=== PATIENT | female | born 1960 | race African-American/Black ===

== ENCOUNTER 2017-03-10 08:30 | Day surgery (SDC) | payer MEDICARE, MEDICAID ==
[~2017-03-10] VITALS: Ht 182.9 cm; Wt 146.4 kg
[~2017-03-10 08:30] MED LIST: BENTYL10 MG PO; CARAFATE1 G; CARAFATE1 G PO; CLEOCIN HCL300 MG PO; CYMBALTA30 MG PO; HYDROCODONE-APA1 TAB PO; LASIX40 MG PO; LIORESAL 10 MG10 MG PO; NEXIUM40 MG PO; OXYCONTIN15 MG PO; VENTOLIN HFA18 GM INH
[2017-03-10 10:38] LABS: HEMATOCRIT 41.9 % (36.0-48.0); HEMOGLOBIN 13.2 g/dL (12-16); MCH 29.5 pg (26.0-34.0); MCHC 31.5 g/dL (31.0-37.0); MCV 93.5 fL (80.0-100.0); MEAN PLATELET VOLUME 9.9 fL (7.4-10.4); RBC 4.48 10x6/uL (4.00-5.40); RDW 14.5 % (11.5-14.5); WBC 4.5 10x3/uL (4.8-10.8)
[2017-03-10] MEDS ORDERED: CYCLOBENZAPRINE10 MG PO (10:57)
[2017-03-10 11:05] VITALS: BP 125/66; Ht 182.9 cm; Wt 146.4 kg
--- NOTE | 2017-03-10 13:39 | NUR ---
DILATE ESOPHAGUS WITH 18-20 HEBREW BALLOON.
--- NOTE | 2017-03-10 15:15 | NUR ---
PATIENT'S SISTER HAS ARRIVED TO PROVIDE PATIENT TRANSPORTATION HOME. DISCHARGE INSTRUCTIONS REVIEWED WITH PATIENT, DISCHARGED HOME VIA WHEELCHAIR TO PRIVATE VEHICLE WITH SISTER
--- NOTE | 2017-03-13 12:18 | OP ---
PATIENT NAME: ISAAC LITTLE MEDICAL RECORD: [id number] :60 LOCATION:[place] ADMISSION DATE: SURGEON: DARIO WALKER DO DATE OF OPERATION: 03/10/2017 PROCEDURE: EGD with biopsies and balloon dilation less than 30 mm. INDICATIONS FOR PROCEDURE: Achalasia and dysphagia. SCOPE: Olympus video gastroscope. MEDICATIONS: The patient was intubated for general anesthesia due to history of achalasia. She was given Versed 2 mg IV and succinylcholine 140 mg IV for induction. This was followed by propofol 420 mg IV, all per anesthesia. ESTIMATED BLOOD LOSS: Minimal. FINDINGS: Informed consent was given. The Olympus video gastroscope was advanced under direct visualization through the mouth to the second portion of the duodenum. The upper, middle, and distal esophagus appeared normal, other than may be some slight dilation due to a possible diagnosis of achalasia. The GE junction revealed some LA class C reflux-induced esophagitis. It was not long in length, but was involving approximately 75% of the circumference of the GE junction. The lower esophageal sphincter did not appear over only hypertensive as the scope did pass into the stomach rather easily. The scope was retroflexed upon entrance into the stomach to view the cardia. There was evidence of a past Pauly fundoplication, but it did not appear too tight. The endoscope was placed into a forward position to view the body and antrum of the stomach. The fundus and body appeared normal. In the antrum, there was some streaky erythema and granularity consistent with possible gastritis. Random biopsies were taken to submit for histology and to rule out H. pylori. The endoscope was advanced into the duodenum where the bulb and second portion of the duodenum appeared normal. The scope was then withdrawn back into the stomach and a 16-18 mm CRE dilating balloon was placed through the scope. The balloon was dilated up to 18 mm maximal at the GE junction. Post-endoscopic appearances were satisfactory. On withdrawal of the scope, there was a questionable appearance of Candidal esophagitis present. Scope was then withdrawn from the patient in its entirety. The patient tolerated the procedure well and there were no complications. IMPRESSION: 1. Candidal esophagitis. 2. Reflux esophagitis grade C. 3. 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 This was dilated to 18 mm with a CRE balloon. 4. Possible gastritis with findings of granularity and erythema. Biopsies taken. 5. Status post Pauly fundoplication. PLAN AND RECOMMENDATIONS: 1. Discharge home when recovery parameters are met. 2. Continue current medications. 3. Add fluconazole 100 mg p.o. daily times 21 days. 4. Follow up in the GI clinic as needed. 5. Notify the clinic if symptoms do not improve. 6. Follow up with general surgery as previously scheduled. OPERATIVE REPORT [id number] ISAAC LITTLE TRANSINT:[id number] Voice Confirmation ID: [id number] DOCUMENT ID: [id number] DARIO WALKER DO at 1218 CC: [id number] DICTATION DATE: 03/10/17 1355 RETAINING ROOM CUTTER: 03/11/17 0003 [facility] 03/10/17 [id number] [place] [address]
== END 2017-03-10 15:15 | disposition home or self-care (01) ==
LOC: D.OPS 08:30
PROVIDERS: Anesthesiology
DX: R13.10 Dysphagia, unspecified (principal); K22.0 Achalasia of cardia; B37.81 Candidal esophagitis; K21.0 Gastro-esophageal reflux disease with esophagitis; J45.909 Unspecified asthma, uncomplicated; G47.30 Sleep apnea, unspecified; E66.01 Morbid (severe) obesity due to excess calories; Z68.41 Body mass index [BMI] 40.0-44.9, adult; Z01.812 Encounter for preprocedural laboratory examination

== ENCOUNTER 2018-04-20 09:50 | Day surgery (SDC) | payer MEDICARE, MEDICAID ==
[~2018-04-20] VITALS: Ht 182.9 cm; Wt 152.3 kg
--- NOTE | ~2018-04-20 | OP ---
PATIENT NAME: ISAAC LITTLE MEDICAL RECORD: [id number] :60 [facility] DATE: SURGEON: DARIO WALKER DO DATE OF OPERATION: 04/20/2018 PROCEDURE: EGD with biopsies and balloon dilation. INDICATIONS FOR PROCEDURE: Dysphagia with a known history of achalasia. SCOPE: Olympus video gastroscope. MEDICATIONS: Propofol 400 mg IV per anesthesia. ESTIMATED BLOOD LOSS: Minimal. COMPLICATIONS: None. FINDINGS: Informed consent was given. The patient was made comfortable with the above medication. After reaching an adequate level of sedation by slow IV push, the patient was placed on her left side. The endoscope was advanced under direct visualization through the mouth to the second portion of the duodenum. Throughout the entire esophagus, there was severe candidal esophagitis. The proximal, mid, and distal thirds of the esophagus were also dilated. At the distal esophagus and GE junction, there was some stenosis which would be consistent with her history of achalasia. At the GE junction, there was also some mild reflux esophagitis. Cold forceps biopsies were taken of the GE junction and an 18-20 mm CRE balloon was placed through the working channel of the endoscope. The site was dilated from 18 mm up to 20 mm total maximum diameter. Dilation was successful. The endoscope was advanced beyond the GE junction into the stomach and retroflexed to view the cardia, where a prior intervention was visualized. The patient does report a history of a Pauly fundoplication. The mucosa of the stomach appeared normal. Random biopsies were not taken as these were performed approximately a year ago and were normal. The endoscope was advanced beyond the pylorus into the duodenum where the bulb, first portion, and second portion of the duodenum all appeared normal. The endoscope was withdrawn from the patient. The patient tolerated the procedure well and there were no complications. IMPRESSION: 1. Candidal esophagitis. 2. Mild reflux esophagitis. 3. Dilated esophagus and a stenosed GE junction consistent with her history of achalasia status post biopsies and dilation to 20 mm. 4. Prior intervention in the form of a Pauly fundoplication involving the cardia of the stomach. PLAN AND RECOMMENDATIONS: 1. Discharge home when recovery parameters are met. 2. Follow up biopsy specimen results. 3. Continue current diet. 4. Continue current medications. 5. Add fluconazole 100 mg times 21 days and take 2 on day 1. 6. Repeat EGD as needed for dysphagia. TRANSINT:[id number] Voice Confirmation ID: [id number] DOCUMENT ID: [id number] OPERATIVE REPORT [id number] ISAAC LITTLE NATHAN A DO at 1531 CC: [id number] DICTATION DATE: 04/20/18 1255 FENCE INSTALLER FOREMAN: 04/20/[address] [facility] 04/20/[address] [address]
[~2018-04-20 09:50] MED LIST changes: +CYCLOBENZAPRINE10 MG PO
[2018-04-20 10:15] LABS: HEMATOCRIT 38.7 % (36.0-48.0); HEMOGLOBIN 12.8 g/dL (12-16); MCH 30.3 pg (26.0-34.0); MCHC 33.1 g/dL (31.0-37.0); MCV 91.7 fL (80.0-100.0); MEAN PLATELET VOLUME 9.8 fL (7.4-10.4); RBC 4.22 10x6/uL (4.00-5.40)
[2018-04-20 10:52] VITALS: Ht 182.9 cm; Wt 152.3 kg
== END 2018-04-20 14:01 | disposition home or self-care (01) ==
LOC: D.OPS 09:50
PROVIDERS: Anesthesiology
DX: R13.10 Dysphagia, unspecified (principal); B37.81 Candidal esophagitis; K22.2 Esophageal obstruction; K21.0 Gastro-esophageal reflux disease with esophagitis; K22.8 Other specified diseases of esophagus; J45.909 Unspecified asthma, uncomplicated; E66.01 Morbid (severe) obesity due to excess calories; Z01.812 Encounter for preprocedural laboratory examination

== ENCOUNTER → 2019-07-07 10:24 | Outpatient (CLI) | payer MEDICARE, MEDICAID ==
[2018-04-20 10:52] VITALS: BMI 45.5
== END | disposition home or self-care (01) ==
LOC: D.RAD 10:24 → D.RT 11:00
PROVIDERS: ATTEND Internal Medicine Pulmonary Disease
DX: J45.901 Unspecified asthma with (acute) exacerbation (principal)

== ENCOUNTER 2019-08-18 10:59 | Day surgery (SDC) | payer MEDICARE, MEDICAID ==
[~2019-08-18] VITALS: Ht 182.9 cm; Wt 153.6 kg
[2019-08-18 11:51] LABS: HEMATOCRIT 41.1 % (36.0-48.0); HEMOGLOBIN 13.7 g/dL (12-16); MCHC 33.3 g/dL (31.0-37.0); MEAN PLATELET VOLUME 9.6 fL (7.4-10.4); RBC 4.42 10x6/uL (4.00-5.40); RDW 12.9 % (11.5-14.5); WBC 6.2 10x3/uL (4.8-10.8)
[2019-08-18 12:04] LABS: CALC OSMOLALITY 275 mosm/kg (275-300); CALCIUM 8.7 mg/dL (8.5-10.1); CARBON DIOXIDE 25.7 mmol/L (21.0-32.0); CHLORIDE - SERUM 105 mmol/L (98-107); CREATININE - SERUM 0.8 mg/dL (0.6-1.3); GLUCOSE 83 mg/dL (74-106); POTASSIUM - SERUM 4.1 mmol/L (3.5-5.1); SODIUM 140 mmol/L (136-145); UREA NITROGEN 7 mg/dL (7-18); eGFR NON AFRICAN AMERICAN 78 mL/min (90-120)
[2019-08-18 12:57] VITALS: BP 117/54; Ht 182.9 cm; Wt 153.6 kg
[2019-08-18] MEDS ORDERED: VOLTAREN100 GM TOPICAL (13:13)
--- NOTE | 2019-08-23 11:16 | OP ---
PATIENT NAME: ISAAC LITTLE MEDICAL RECORD: [id number] :60 [facility] ADMISSION DATE: SURGEON: DARIO WALKER DO DATE OF OPERATION: 08/18/2019 PROCEDURE: EGD with balloon dilation and biopsies. INDICATIONS FOR PROCEDURE: Dysphagia, GERD, nausea with vomiting, and achalasia. SCOPE: Olympus video gastroscope. MEDICATIONS: Propofol 200 mg IV per anesthesia. ESTIMATED BLOOD LOSS: Minimal. COMPLICATIONS: None. FINDINGS: Informed consent was given. The patient was made comfortable with the above medication. After reaching an adequate level of sedation by slow IV push, the patient was placed on her left side. The endoscope was advanced under direct visualization through the mouth to the second portion of the duodenum with ease. The upper esophagus appeared normal. In the middle and distal thirds of the esophagus, there was diffuse esophageal candidiasis of moderate severity. At the GE junction, there was evidence of LA class C, reflux-induced esophagitis without ulcerations. The endoscope was advanced beyond the GE junction into the stomach and retroflexed to view the cardia. It was evident that the patient had had a previous Pauly fundoplication which is no longer intact. The endoscope was brought back up into the GE junction and distal esophagus for further evaluation of that GE junction. There was felt to be some esophageal stenosis. An 18-20 mm dilating balloon was placed through the working channel across the stenosis and was insufflated to 20 mm maximum diameter. The endoscope was then placed back in the stomach and advanced to the pylorus. The entire stomach appeared normal. A random cold forceps biopsy was taken from the antrum to submit for histopathology and to rule out the presence of H. pylori. The endoscope was advanced beyond the pylorus into the duodenum, which appeared normal down to the second portion. The endoscope was then withdrawn from the patient. The patient tolerated the procedure well and there were no complications. IMPRESSION: 1. Moderately severe candidal esophagitis. 2. LA class C, reflux-induced esophagitis. 3. Esophageal stenosis status post dilation to 20 mm maximum diameter. 4. Prior Pauly fundoplication which is no longer intact. PLAN AND RECOMMENDATIONS: 1. Discharge home when recovery parameters are met. 2. GERD diet and reflux precautions. 3. Follow up biopsy specimen results. 4. Prescriptions will be provided for fluconazole 100 mg times 2 weeks and Nexium 40 mg capsules daily. The patient had previously been on Nexium but has not been able to get any refills for the past 2 months. 5. Follow up in GI clinic in 4-6 weeks. If the patient has continued symptoms, we will work up further accordingly based on those symptoms after treatment of OPERATIVE REPORT [id number] SIDNEYISAACSERA MEYERS candidal esophagitis and being restarted on her antacid medications. TRANSINT:[id number] Voice Confirmation ID: [id number] DOCUMENT ID: [id number] DARIO WALKER DO at 1116 CC: [id number] DICTATION DATE: 08/18/19 1352 CLAIMS COORDINATOR: 08/18/19 2138 [facility] 08/18/19 [id number] [place] [address]
== END 2019-08-18 14:35 | disposition home or self-care (01) ==
LOC: D.OPS 10:59
PROVIDERS: Anesthesiology; ATTEND Internal Medicine Gastroenterology
DX: R13.10 Dysphagia, unspecified (principal); K22.0 Achalasia of cardia; B37.81 Candidal esophagitis; K21.0 Gastro-esophageal reflux disease with esophagitis; K22.2 Esophageal obstruction

== ENCOUNTER → 2019-09-02 09:20 | Outpatient (CLI) | payer MEDICARE, MEDICAID ==
[2019-08-18 12:57] VITALS: BMI 45.9
[~2019-09-02 09:20] MED LIST changes: +VOLTAREN100 GM TOPICAL
== END | disposition home or self-care (01) ==
LOC: D.RAD 08:00
PROVIDERS: ATTEND Internal Medicine Gastroenterology
DX: R14.0 Abdominal distension (gaseous) (principal); R12 Heartburn; K21.9 Gastro-esophageal reflux disease without esophagitis; R05 Cough

== ENCOUNTER 2019-10-25 07:38 | Day surgery (SDC) | payer MEDICARE, MEDICAID ==
[~2019-10-25] VITALS: Ht 182.9 cm; Wt 145.5 kg
--- NOTE | ~2019-10-25 | OP ---
PATIENT NAME: ISAAC LITTLE MEDICAL RECORD: [id number] :60 LOCATION:D.[facility] ADMISSION DATE: SURGEON: DARIO WALKER DO DATE OF OPERATION: 10/25/2019 PROCEDURE: Diagnostic colonoscopy. INDICATION FOR PROCEDURE: Change in bowel habits and screening for colorectal cancer. SCOPE: Olympus video pediatric colonoscope. MEDICATIONS: Propofol 650 mg IV per anesthesia. WITHDRAWAL TIME: 7 minutes. ESTIMATED BLOOD LOSS: None. COMPLICATIONS: None. FINDINGS: Informed consent was given. The patient was made comfortable with the above medication. After reaching an adequate level of sedation by slow IV push, the patient was placed on her left side. A digital rectal examination was performed and was normal. The endoscope was then advanced under direct visualization through the rectum to the cecum with great difficulty due to an inadequate prep. The endoscope was withdrawn and mucosa was examined as best as possible. There were no obvious masses or polyps visualized on today's examination, but the prep was inadequate for an effective screening colonoscopy. There were some scattered diverticula visualized and retroflexion revealed some internal hemorrhoids. They were not bleeding. The endoscope was withdrawn from the patient. The patient tolerated the procedure well, and there were no immediate complications. IMPRESSION: 1. Inadequate prep for screening purposes. 2. Mczr-[id number]-vxlxvirn diverticulosis. 3. Grade I internal hemorrhoids without bleeding. PLAN AND RECOMMENDATIONS: 1. Discharge home when recovery parameters are met. 2. Reschedule colonoscopy at the patient's convenience for screening purposes. The patient will need a different prep than SUPREP as this caused nausea and vomiting and she could not hold the prep down resulting in her inadequate prep. TRANSINT:[id number] Voice Confirmation ID: [id number] DOCUMENT ID: [id number] DARIO WALKER DO CC: [id number] DICTATION DATE: 10/25/19 1001 DIRECTOR OF EVENT MARKETING: 10/25/19 1248 [facility] 10/25/19 [id number] [place] [id number]
[2019-10-25] MEDS ORDERED: OMEPRAZOLE20 M1 PO (08:35)
[2019-10-25 08:44] VITALS: BP 113/75; Ht 182.9 cm; Wt 145.5 kg
[2019-10-25 09:06] LABS: HEMATOCRIT 41.2 % (36.0-48.0); HEMOGLOBIN 13.5 g/dL (12-16); MCH 30.8 pg (26.0-34.0); MCHC 32.8 g/dL (31.0-37.0); MCV 93.8 fL (80.0-100.0); MEAN PLATELET VOLUME 9.9 fL (7.4-10.4); RBC 4.39 10x6/uL (4.00-5.40); RDW 12.9 % (11.5-14.5); WBC 4.4 10x3/uL (4.8-10.8)
--- NOTE | 2019-10-25 12:05 | NUR ---
1132 IV DC'D. CATHETER TIP INTACT. PRESSURE HELD UNTIL BLEEDING STOPPED. BANDAID APPLIED.
== END 2019-10-25 11:39 | disposition home or self-care (01) ==
LOC: D.OPS 07:38
PROVIDERS: Anesthesiology; ATTEND Internal Medicine Gastroenterology
DX: R19.4 Change in bowel habit (principal); Z12.11 Encounter for screening for malignant neoplasm of colon; J45.909 Unspecified asthma, uncomplicated; E11.9 Type 2 diabetes mellitus without complications; M79.7 Fibromyalgia